=== PATIENT | female | born 1950 | race Caucasian/White ===

== ENCOUNTER → 2017-01-24 | Outpatient (REF) | payer MEDICARE, OTHER | LOC: M LAB REF 16:39 | PROVIDERS: ATTEND Obstetrics & Gynecology | DX: R39.89 Other symptoms and signs involving the genitourinary system (principal) ==

== ENCOUNTER → 2017-05-18 | Outpatient (CLI) | payer MEDICARE, OTHER ==
--- NOTE | 2017-05-18 12:31 | REPMRS ---
Patient History The patient states she had a clinical breast exam in January 2017.Patient is postmenopausal and has history of other cancer at age 63. Family history of unknown cancer in maternal grandfather at age 75 and breast cancer in maternal aunt at age 43. Benign excisional biopsy of the right breast, 1980. Benign mammogram-guided core biopsy of the right breast. Took hormonal contraceptives for 15 years. Took unspecified hormones for 10 years. Digital Mammo Screening Bilat: May 18, 2017 - Exam #: [id number] Bilateral CC and MLO view(s) were taken. Technologist: Nelly Lebron Technologist Prior study comparison: April 12, 2016, bilateral digital mammo screening bilat performed at [facility]. April 05, 2015, digital mammo diagnostic bilateral performed at [facility]. May 13, 2014, left breast digital mammo diagnostic unilateral performed at [facility]. FINDINGS: The breast tissue is heterogeneously dense. This may lower the sensitivity of mammography. There is a moderate amount of heterogeneously dense fibroglandular tissue which is fairly symmetric. There is no interval development of dominant mass, architectural distortion, or clustered microcalcification typical of malignancy. There has been no change in the appearance of the mammogram from the prior studies. ASSESSMENT: BI-RADS/ACR category 1 mammogram. Negative. Recommendation Routine screening mammogram of both breasts in 1 year (for women over age 40). This mammogram was interpreted with the aid of an FDA-approved computer-aided dectection system. Electronically Signed By: Dwain Johnston MD 05/18/17 [id number]
== END ==
LOC: M RAD 10:12
PROVIDERS: ATTEND Obstetrics & Gynecology
DX: Z12.31 Encounter for screening mammogram for malignant neoplasm of breast (principal)

== ENCOUNTER → 2018-05-22 | Outpatient (CLI) | payer MEDICARE, OTHER | LOC: M RAD 13:49 | DX: Z12.31 Encounter for screening mammogram for malignant neoplasm of breast (principal); Z79.3 Long term (current) use of hormonal contraceptives; Z79.890 Hormone replacement therapy; Z80.3 Family history of malignant neoplasm of breast; Z86.018 Personal history of other benign neoplasm | CPT/HCPCS: 77067 ==

== ENCOUNTER → 2018-08-02 | Outpatient (CLI) | payer MEDICARE, OTHER ==
[2018-08-02 17:26] LABS: FOLATE > 24.0 NG/ML; VITAMIN B12 LEVEL 898 PG/ML
== END ==
LOC: M LAB 15:57
DX: D51.9 Vitamin B12 deficiency anemia, unspecified (principal); E61.0 Copper deficiency; E51.9 Thiamine deficiency, unspecified
CPT/HCPCS: 82525

== ENCOUNTER → 2019-04-17 | Outpatient (CLI) | payer MEDICARE, OTHER ==
[~2019-04-17] MED LIST: ASPI81TA85 PO; AZIL1TAB PO; CALC600C3 PO; CARB25TA18 PO; CVS500CA5 PO; DOCU100C16 PO; LEVO50TA5 PO; MAGN400T2 PO; MULTCAP PO; PARO20TA4 PO; PROBCAP14 PO; RESV1TAB PO; SIMV20TA2 PO; VESI10TA2 PO; VITA-157 PO; VITA500C19 PO
--- NOTE | 2019-04-17 09:52 | REP ---
REASON: Splenomegaly. COMPARISON: None. The spleen measures 9.0 x 3.9 x 9.3 cm. These dimensions are within normal limits. On imaging the left upper quadrant images of the left kidney were obtained showing the kidney to measure 11 x 5.7 x 5.1 cm. Seen in the lower pole of the left kidney an echogenic shadowing focus was noted measuring 1.1 cm in dimension. There is no associated hydronephrosis. IMPRESSION: 1. No evidence of splenomegaly or other splenic abnormality. 2. Nonobstructing left renal calculus is suspected as described above. Electronically Signed by Otis Mckeon DO 04/17/2019 03:28 P
== END ==
LOC: M RAD 08:07
PROVIDERS: ATTEND Internal Medicine
DX: D72.829 Elevated white blood cell count, unspecified (principal)

== ENCOUNTER → 2019-05-02 | Outpatient (CLI) | payer MEDICARE, OTHER ==
[~2019-05-02] MED LIST changes: +GASTROGRAFIN SOLUTION 30ML (Q9963) As Ordered ONE; +ISOVUE-370 76% 100ML VIAL (Q9967) As Ordered ONE
--- NOTE | 2019-05-02 19:15 | REP ---
Clinical: Leukocytosis. Technique: Axial contrast enhanced images from the lung bases to the pubic symphysis using oral (per protocol) and 100 ml Isovue 370 intravenous contrast material with precontrast and delayed images of the abdomen as well as coronal and sagittal re-formations. Findings: Lung bases demonstrate chronic-appearing interstitial and fibroatelectatic changes (left greater than right). Visualized heart and pericardium normal. Liver, spleen, pancreas, gallbladder, bilateral adrenal glands are normal. The right kidney demonstrates a small hypodensities measuring up to 1.3 cm suggesting simple and complex cysts. The left kidney includes 15 mm nonobstructing calculus without hydronephrosis or perinephric stranding. The enteric system is without obstruction or acute inflammatory process. Pelvis demonstrates normal bladder and suspected myomatous changes to the uterus. No ascites. No free air. No adenopathy. Abdominal aorta without aneurysm or dissection. Musculoskeletal structures demonstrate age-related changes without focal abnormality. Impression: 1. Right renal hypodensities suggesting simple and complex cysts up to 1.3 cm and 15 mm nonobstructing left renal calculus. 2. Suspected myomatous changes to the uterus. Electronically Signed by Ervin Perales MD 05/02/2019 07:08 P
--- NOTE | 2019-05-02 19:18 | REP ---
Clinical: Leukocytosis. Technique: Axial contrast enhanced images from the thoracic inlet to the upper abdomen with coronal and sagittal re-formations using 100 ml Isovue 370 intravenous contrast material. Findings: Minimal chronic-appearing interstitial and basilar fibroatelectatic changes. No focal consolidation. No effusion. No pneumothorax. No significant nodule or mass lesion. Tracheobronchial tree is patent. No obvious adenopathy. Atherosclerotic changes to the thoracic aorta and coronary arteries noted without aortic aneurysm or cardiomegaly. No pericardial effusion. Musculoskeletal structures demonstrate age-related changes without focal abnormality. Impression: Chronic-appearing changes. No acute mediastinal or pleuroparenchymal process. Electronically Signed by Ervin Perales MD 05/02/2019 07:11 P
--- NOTE | 2019-05-06 09:17 | REP ---
Soft tissue neck CT with IV contrast: History: Increasing white blood cell count. Marginal zone lymphoma. CT contrast dose: 100 mL of intravenous Isovue [address] findings: Parotid and submandibular glands are normal and symmetric. Thyroid lobes are small and symmetric. There is no evidence of neck mass, adenopathy, or abnormal fluid collection. No airway lesion is seen. Tonsillar and peritonsillar soft tissues are unremarkable. No bony destructive lesion is seen. No intraorbital abnormality is observed. Paranasal sinuses are clear. Visualized intracranial structures are unremarkable. The lung apices show no abnormality. Impression: No neck mass or adenopathy seen. No abnormal fluid collection noted. Electronically Signed by Kody Johnston MD 05/06/2019 09:44 A
--- NOTE | 2019-05-06 10:32 | REP ---
Clinical: Leukocytosis. Technique: Axial pre and postcontrast images from the skull base to the vertex using 100 ml Isovue 370 intravenous contrast material. Comparison: MRI of the brain dated 03/26/2012. Findings: Age-related atrophy with subtle periventricular leukomalacia is appreciated. The ventricles are symmetric. Baum-white differentiation is maintained. No intracranial mass or mass effect is appreciated. No abnormal enhancing lesions are identified. The [place] appears relatively intact. No obvious aneurysm or arteriovenous malformation. No extra-axial fluid collection. The calvarium is intact. Paranasal sinuses and mastoid air cells are clear. Impression: Age-related atrophy. Otherwise normal pre and postcontrast CT of the brain. Electronically Signed by Ervin Perales MD 05/06/2019 10:24 A
== END ==
LOC: M RAD 14:59
PROVIDERS: ATTEND Internal Medicine
DX: D72.829 Elevated white blood cell count, unspecified (principal)
CPT/HCPCS: 70470; 70491; 71260; 74178; Q9963; Q9967

== ENCOUNTER → 2019-05-12 | Outpatient (REF) | payer MEDICARE, OTHER ==
[~2019-05-12] MED LIST changes: -GASTROGRAFIN SOLUTION 30ML (Q9963) As Ordered ONE; -ISOVUE-370 76% 100ML VIAL (Q9967) As Ordered ONE
== END ==
LOC: M SMT 18:11
PROVIDERS: ATTEND Urology
DX: N20.0 Calculus of kidney (principal)
CPT/HCPCS: 81002; 87086; G0463

== ENCOUNTER → 2019-05-23 | Outpatient (CLI) | payer MEDICARE, OTHER ==
--- NOTE | 2019-05-23 13:53 | REPMRS ---
Patient History The patient states she had a clinical breast exam in February 2019. Family history of unknown cancer at age 75 in maternal grandfather, breast cancer at age 43 in maternal aunt. Benign excisional biopsy of the right breast, 1980. Benign mammogram-guided core biopsy of the right breast. Took hormonal contraceptives for 15 years. Took unspecified hormones for 10 years. 3D TOMOSYNTHESIS WAS PERFORMED. The [facility] lifetime risk for breast cancer is 4.6%. Digital Mammo Screening Bilat: May 23, 2019 - Exam #: [id number] Bilateral CC and MLO view(s) were taken. Technologist: Rosa Avila, Technologist Prior study comparison: May 22, 2018, bilateral digital mammo screening bilat performed at [facility]. May 18, 2017, bilateral digital mammo screening bilat performed at [facility]. FINDINGS: The breast tissue is heterogeneously dense. This may lower the sensitivity of mammography. There has been no change in the appearance of the mammogram from the prior studies. There is a moderate amount of residual fibroglandular tissue which is fairly symmetric. There is no interval development of dominant mass, areas of architectural distortion, or clustered microcalcification typical of malignancy. Assessment: BI-RADS/ACR category 1 mammogram. Negative Mammogram. Recommendation Routine screening mammogram in 1 year (for women over age 40). This mammogram was interpreted with the aid of an FDA-approved computer-aided dectection system. Electronically Signed By: Sunday Baum MD 05/23/19 [id number]
== END ==
LOC: M RAD 10:49
PROVIDERS: ATTEND Obstetrics & Gynecology
DX: Z12.31 Encounter for screening mammogram for malignant neoplasm of breast (principal); Z80.3 Family history of malignant neoplasm of breast

== ENCOUNTER 2019-05-27 11:48 | Day surgery (SDC) | payer MEDICARE, OTHER ==
[~2019-05-27] VITALS: Ht 149.9 cm; Wt 62.3 kg
[~2019-05-27 11:48] MED LIST changes: +LIDOCAINE 2% INJ 100 MG/5 ML SDV (FOR ANES.) As Ordered ONE; +NS 1,000 ML IV ONE; +PROPOFOL 200 MG/20 ML VIAL As Ordered ONE
[2019-05-27] MEDS ORDERED: fentaNYL 100 MCG/2 ML INJECTION (J3010) As Ordered ONE (12:40)
--- NOTE | 2019-05-27 14:15 | ROOR ---
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 Providers: Travis Borjas MD Referring MD: IMAN COATS DO Requesting Provider: Medicines: Monitored Anesthesia Care Complications: No immediate complications. Procedure: Pre-Anesthesia Assessment: - Prior to the procedure, a History and Physical was performed, and patient medications and allergies were reviewed. The patient is competent. The risks and benefits of the procedure and the sedation options and risks were discussed with the patient. All questions were answered and informed consent was obtained. Patient identification and proposed procedure were verified by the physician, the nurse and the anesthesiologist in the procedure room. Mental Status Examination: alert and oriented. Airway Examination: normal oropharyngeal airway and neck mobility. Respiratory Examination: clear to auscultation. CV Examination: normal. Prophylactic Antibiotics: The patient does not require prophylactic antibiotics. Prior Anticoagulants: The patient has taken no previous anticoagulant or antiplatelet agents. ASA Grade Assessment: II - A patient with mild systemic disease. After reviewing the risks and benefits, the patient was deemed in satisfactory condition to undergo the procedure. The anesthesia plan was to use monitored anesthesia care (MAC). Immediately prior to administration of medications, the patient was re-assessed for adequacy to receive sedatives. The heart rate, respiratory rate, oxygen saturations, blood pressure, adequacy of pulmonary ventilation, and response to care were monitored throughout the procedure. The physical status of the patient was re-assessed after the procedure. The Endoscope was introduced through the mouth, and advanced to the second part of duodenum. The upper GI endoscopy was accomplished without difficulty. The patient tolerated the procedure well. Findings: The examined esophagus was normal. The Z-line was regular and was found 36 cm from the incisors. A few 3 to 6 mm sessile fundic gland polyps with no stigmata of recent bleeding were found in the gastric fundus and in the gastric body. Scattered moderate inflammation characterized by erosions, granularity and linear erosions was found in the gastric antrum. Four biopsies were obtained with cold forceps for histology and Helicobacter pylori testing in the gastric antrum, as well as four biopsies in the gastric body. No gross lesions were noted in the duodenal bulb and in the second portion of the duodenum. Biopsies were taken with a cold forceps for histology. Impression: - Normal esophagus. - Z-line regular, 36 cm from the incisors. - A few fundic gland polyps. - Gastritis. - No gross lesions in the duodenal bulb and in the second portion of the duodenum. Biopsied. - Biopsies performed in the gastric antrum and in the gastric body. Recommendation: - Patient has a contact number available for emergencies. The signs and symptoms of potential delayed complications were discussed with the patient. Return to normal activities tomorrow. Written discharge instructions were provided to the patient. - Resume previous diet. - Continue present medications. - Await pathology results. - Telephone GI clinic for pathology results in 2 weeks. - Return to primary care physician. Travis Borjas MD Travis Borjas MD 05/27/2019 2:15:30 PM Electronically signed by Travis Borjas MD Number of Addenda: 0 Note Initiated On: 05/27/2019 1:50 PM Estimated Blood Loss: Estimated blood loss was minimal.
[2019-05-27 14:33] VITALS: BP 149/69
== END 2019-05-27 14:33 | disposition home or self-care (01) ==
LOC: M OPP 11:48
PROVIDERS: ATTEND Internal Medicine Gastroenterology
DX: K31.7 Polyp of stomach and duodenum (principal); K29.70 Gastritis, unspecified, without bleeding; Z79.82 Long term (current) use of aspirin; Z79.899 Other long term (current) drug therapy
CPT/HCPCS: 43239; 88305; J3010

== ENCOUNTER → 2019-11-10 | Outpatient (CLI) | payer MEDICARE, OTHER ==
[~2019-11-10] MED LIST changes: +CARB1TAB97 PO; -LIDOCAINE 2% INJ 100 MG/5 ML SDV (FOR ANES.) As Ordered ONE; -NS 1,000 ML IV ONE; +OMEP-221 PO; -PROPOFOL 200 MG/20 ML VIAL As Ordered ONE; -SIMV20TA2 PO; +SIMV20TA22 PO
--- NOTE | 2019-11-10 11:27 | REP ---
Renal ultrasound for left renal calculus. : Comparison is the abdomen/pelvis CT dated 05/02/2019. The right kidney measures 11.7 x 5.8 x 3.6 cm. The left kidney measures 11.0 x 4.4 x 6.0 cm. The kidneys are normal size. There is a hyperechoic focal density in the upper pole right kidney by ultrasound today measuring 1.4 x 1.2 x 1.5 cm. The on the comparison CT this was a renal cortical cyst. On the comparison CT there was a second renal cortical cyst on the right at the mid pole measuring 7 mm. This is not visible on the ultrasound today. On the comparison CT there was a calculus in the left renal pelvis measuring up to 15 mm. On the ultrasound study today there is a left renal calculus in the renal pelvis measuring 1.8 by 1.3 cm. There is no hydronephrosis on the right on the left. No solid renal masses are identified. With color Doppler assessment there are bilateral ureteral jets into the bladder. Impression: Hyperdense right renal cyst as described. Nonobstructive calculus in the left renal pelvis as described. There is no hydronephrosis. There are bilateral ureteral jets. Electronically Signed by Sunday Hager MD 11/10/2019 11:19 A
== END ==
LOC: M RAD 09:43
PROVIDERS: ATTEND Urology
DX: N20.0 Calculus of kidney (principal)
CPT/HCPCS: 36415; 76775; 80053; 82784; 85027; G0463

== ENCOUNTER 2019-11-27 06:07 | Day surgery (SDC) | payer MEDICARE, OTHER ==
[~2019-11-27] VITALS: Ht 149.9 cm; Wt 62.2 kg
[~2019-11-27 06:07] MED LIST changes: +LR 1,000 ML IV ONE; +ceFAZolin SOD 2 GM in IV 1 EA IV ONE
[2019-11-27] MEDS ORDERED: propofoL 500 MG/50 ML VIAL As Ordered ONE (07:00)
[2019-11-27] MEDS ORDERED: LIDOCAINE 2% INJ 100 MG/5 ML SDV (FOR ANES.) As Ordered ONE (07:00)
[2019-11-27 09:00] VITALS: BP 125/63
--- NOTE | 2019-11-27 09:28 | REP ---
KUB ABDOMEN AND PELVIS: KUB film of the abdomen and pelvis is performed. Calcification overlying the lower left kidney measures approximately 1.3 cm in diameter. There are multiple phleboliths in the pelvis. Bowel gas pattern is normal. Electronically Signed by Sunday Baum MD 11/27/2019 04:48 P
--- NOTE | 2019-11-27 09:58 | RO ---
DATE OF PROCEDURE: 11/27/2019 PREPROCEDURE DIAGNOSIS: Left kidney stone. POSTPROCEDURE DIAGNOSIS: Left kidney stone. PROCEDURE: Left extracorporeal shockwave lithotripsy. SURGEON: Dr. Sergo Hopkins RESEARCH ENVIRONMENTAL ENGINEER: None. ANESTHESIA: Monitored anesthesia care (MAC). OPERATIVE INDICATIONS: This is a 69-year-old female who was found to have a 15 mm left kidney stone. She was brought to the operating room today for the above listed procedure. DESCRIPTION OF PROCEDURE: The patient was brought to the operating room and MAC anesthesia was administered. Prophylactic antibiotics were infused. She was placed in supine position in preparation for a left sided extracorporeal shockwave lithotripsy. Fluoroscopy and ultrasonography were utilized to monitor stone position and fragmentation throughout the procedure. Shockwaves were then delivered to the left sided kidney stone ungated. There were no arrhythmias. The stone did appear to fragment some. After 2500 shocks, the procedure was concluded. The patient was then awakened from anesthesia and transported to the recovery room in stable condition. Estimated blood loss 0 mL. Complications: None. Specimens: None. Plan: The patient will followup in the clinic in 4 weeks with imaging prior to assess for residual stone burden. If at that time it shows that she still has a large amount of stone in the left kidney, she will either be offered repeat ESWL or ureteroscopy. NKECHI
== END 2019-11-27 09:10 | disposition home or self-care (01) ==
LOC: M SDC 06:07
PROVIDERS: ATTEND Urology
DX: N20.0 Calculus of kidney (principal); N32.81 Overactive bladder; E03.9 Hypothyroidism, unspecified; M81.0 Age-related osteoporosis without current pathological fracture; M19.90 Unspecified osteoarthritis, unspecified site; E78.5 Hyperlipidemia, unspecified; F32.9 Major depressive disorder, single episode, unspecified; F41.9 Anxiety disorder, unspecified; G20 Parkinson's disease; Z79.899 Other long term (current) drug therapy; Z79.82 Long term (current) use of aspirin
CPT/HCPCS: 50590; 74018; J0690

== ENCOUNTER → 2019-12-17 | Outpatient (REF) | payer MEDICARE, OTHER ==
[~2019-12-17] MED LIST changes: -LR 1,000 ML IV ONE; -ceFAZolin SOD 2 GM in IV 1 EA IV ONE
== END ==
LOC: M SMT 16:58
PROVIDERS: ATTEND Nurse Practitioner Women's Health
DX: N20.0 Calculus of kidney (principal)

== ENCOUNTER → 2019-12-17 | Outpatient (CLI) | payer MEDICARE, OTHER ==
--- NOTE | 2019-12-18 20:57 | REPPI ---
HISTORY: Left renal calculus. COMPARISON: 11/27/2019. There is a large amount of intestinal content obscuring the nephric silhouettes. The calcification seen previously in the left mid abdomen is not definitely present today, however, there is an increased density seen in the left upper quadrant, but it is for the most part obscured by or imbedded within intestinal content. This limited KUB cannot state the fact with certainty. There are bilateral pelvic calcifications, status quo. The osseous structures are unchanged. IMPRESSION: Findings and marked limitations as described above. Consider stone protocol CT. Electronically Signed by Otis Mckeon DO 12/19/2019 09:05 A
== END ==
LOC: M PLAIMG 14:22
PROVIDERS: ATTEND Urology
DX: N20.0 Calculus of kidney (principal)

== ENCOUNTER → 2020-05-25 | Outpatient (CLI) | payer MEDICARE, OTHER ==
[~2020-05-25] MED LIST changes: -ASPI81TA85 PO; +ASPI81TA86 PO
--- NOTE | 2020-05-25 15:01 | REPMRS ---
Patient History The patient states she had a clinical breast exam in February 2020. Family history of unknown cancer at age 75 in maternal grandfather, breast cancer at age 43 in maternal aunt. Benign excisional biopsy of the right breast, 1980. Benign mammogram-guided core biopsy of the right breast. Took hormonal contraceptives for 15 years. Took unspecified hormones for 10 years. 3D TOMOSYNTHESIS WAS PERFORMED. The [facility] lifetime risk for breast cancer is 4.3%. VOLPARA DENSITY B. Digital Woman Screen Mammo: May 25, 2020 - Exam #: [id number] Bilateral CC and MLO view(s) were taken. Technologist: Rosa Avila, Technologist Prior study comparison: May 23, 2019, bilateral digital mammo screening bilat, performed at [facility]. May 22, 2018, bilateral digital mammo screening bilat, performed at [facility]. FINDINGS: There are scattered fibroglandular densities. There is a fairly symmetric fibroglandular pattern in both breasts. There has been no interval development of masses, areas of architectural distortion or clusters of microcalcifications typical of malignancy. Large coarse benign appearing calcifications are present. Assessment: BI-RADS/ACR category 2 mammogram. Benign Findings. Recommendation Routine screening mammogram of both breasts in 1 year (for women over age 40). This mammogram was interpreted with the aid of an FDA-approved computer-aided dectection system. Electronically Signed By: Sunday Baum MD 05/25/20 [id number]
== END ==
LOC: M WHC 13:50
PROVIDERS: ATTEND Obstetrics & Gynecology
DX: Z12.31 Encounter for screening mammogram for malignant neoplasm of breast (principal); Z80.3 Family history of malignant neoplasm of breast

== ENCOUNTER → 2020-06-17 | Outpatient (CLI) | payer MEDICARE, OTHER ==
--- NOTE | 2020-06-17 14:16 | REP ---
INDICATION: LEFT RENAL STONE COMPARISON: 11/27/2019 TECHNIQUE: Single supine view of the abdomen and pelvis. FINDINGS: Evaluation of the urinary tract system is significantly limited due to technique and overlying bowel gas pattern which includes significant fecal stasis. The previously noted 11 mm left renal calculus is not definitively visualized on current examination. Stable calcifications in the pelvis consistent with phleboliths. The skeletal structures demonstrate stable degenerative changes. IMPRESSION: Limited evaluation of the urinary tract system. Moderate to significant fecal stasis. <Electronically signed by Ervin Perales > 06/17/20 0745
== END ==
LOC: M LAB 13:29
PROVIDERS: ATTEND Nurse Practitioner Family
DX: N20.0 Calculus of kidney (principal)

== ENCOUNTER → 2020-06-28 | Outpatient (REF) | payer MEDICARE, OTHER | LOC: M LAB REF 17:08 | PROVIDERS: ATTEND Physician Assistant | DX: D23.5 Other benign neoplasm of skin of trunk (principal) | CPT/HCPCS: 11102; 88305; G0463 ==

== ENCOUNTER → 2020-09-09 | Outpatient (CLI) | payer MEDICARE, OTHER ==
[~2020-09-09] MED LIST changes: +ASPI81CH33 PO; +MULT-90 PO
[2020-09-09 15:13] LABS: BASO % 0.2 % (0.0-1.0); EOS # 0.1 10^3/uL (0.0-0.5); EOS % 0.5 % (0.0-3.0); HEMATOCRIT 41.9 % (36.0-47.0); HEMOGLOBIN 12.9 g/dl (12.0-15.5); LYMPH % 69.9 % (24.0-44.0); MEAN CORPUSCULAR HEMOGLOBIN 29.3 pg (27.0-33.0); MEAN CORPUSCULAR HGB CONC 30.8 g/dl (32.0-36.5); MEAN CORPUSCULAR VOLUME 95.2 fl (80.0-96.0); MONO # 0.7 10^3/uL (0.0-0.8); MONO % 3.7 % (0.0-5.0); NEUTROPHILS # 4.7 10^3/uL (1.5-8.5); NEUTROPHILS % 25.4 % (36.0-66.0); PLATELET COUNT, AUTOMATED 236 10^3/uL (150-450)
[2020-09-09 15:14] LABS: WHITE BLOOD COUNT 18.6 10^3/uL (4.0-10.0)
[2020-09-09 15:46] LABS: ALBUMIN 4.1 GM/DL (3.2-5.2); ALT/SGPT 11 U/L (12-78); BILIRUBIN,TOTAL 0.4 MG/DL (0.2-1.0); BLOOD UREA NITROGEN 26 MG/DL (7-18); CALCIUM LEVEL 9.6 MG/DL (8.8-10.2); CARBON DIOXIDE LEVEL 33 MEQ/L (21-32); CHLORIDE LEVEL 105 MEQ/L (98-107); CREATININE FOR GFR 0.59 MG/DL (0.55-1.30); GLOMERULAR FILTRATION RATE > 60.0 (>39); GLUCOSE, FASTING 101 MG/DL (70-100); LDH LACTATE DEHYDROGENASE 147 U/L (84-246); POTASSIUM SERUM 4.3 MEQ/L (3.5-5.1); SODIUM LEVEL 141 MEQ/L (136-145)
== END ==
LOC: M LAB 14:34
PROVIDERS: ATTEND Internal Medicine Hematology & Oncology
DX: D72.820 Lymphocytosis (symptomatic) (principal)

== ENCOUNTER → 2020-11-17 | Outpatient (REF) | payer MEDICARE, OTHER ==
[~2020-11-17] MED LIST changes: +LEVO100C PO; -VITA-157 PO; +VITAE40CA PO
== END ==
LOC: M LAB REF 17:17
PROVIDERS: ATTEND Physician Assistant
DX: D23.5 Other benign neoplasm of skin of trunk (principal)

== ENCOUNTER → 2021-01-17 | Outpatient (REF) | payer MEDICARE, OTHER | LOC: M LAB REF 16:10 | PROVIDERS: ATTEND Physician Assistant | DX: L82.1 Other seborrheic keratosis (principal) ==

== ENCOUNTER → 2021-05-31 | Outpatient (CLI) | payer MEDICARE, OTHER ==
--- NOTE | 2021-05-31 16:11 | REP ---
INDICATION: ENCTR SCREEN MAMMO FOR MALIGNANT NEOPLASM OF BREAST. COMPARISON: Multiple TECHNIQUE: Digital screening mammography was carried out bilaterally in the CC and MLO projections using both 2D and 3D modalities and compared to the prior exams. By history, the patient has no complaints of a palpable breast abnormality or other significant breast complaints. FINDINGS: The breasts are unchanged in size and shape. Once again, dense heterogenous nodular fibroglandular elements are seen bilaterally to such a degree that the sensitivity of the mammogram in detecting cancer is decreased. Groups of stable appearing calcifications are again seen bilaterally. No one group appears more suspicious than any other. In the right breast upper inner quadrant there is a potential darcy density. In the left breast upper aspect near 12 o'clock there is a potential darcy asymmetric density with internal architectural distortion. The Volpara volumetric breast density pattern is C. IMPRESSION: BIRADS/ACR category 0 mammogram. Potential abnormalities seen in each breast as described above and for which diagnostic digital DBT spot compression views are recommended in the CC and MLO views bilaterally along with diagnostic ultrasonography if necessary. This patient's Tyrer-Cuzick lifetime breast cancer risk assessment score is 4.1%. This mammogram was interpreted with the aid of an FDA-approved computer-aided detection system. The patient states she had a clinical breast exam in over a year. The patient letter being requested is M0. RECOMMENDATION: As above <Electronically signed by Otis Mckeon > 05/31/21 [id number]
== END ==
LOC: M WHC 14:46
PROVIDERS: ATTEND Obstetrics & Gynecology
DX: R92.2 Inconclusive mammogram (principal)

== ENCOUNTER → 2021-06-21 | Outpatient (CLI) | payer MEDICARE, OTHER ==
--- NOTE | 2021-06-21 16:52 | REP ---
INDICATION: PERSONAL HISTORY OF URINARY CALCULI. COMPARISON: 06/17/2020 FINDINGS: There is a moderate amount of stool seen throughout the colon similar to that seen on the prior exam. The colonic content obscures the nephric silhouettes as on the prior exam. There are bilateral pelvic calcifications likely phleboliths status quo. No definite new abnormal calcifications have developed. There is no significant change in the osseous structures. IMPRESSION: No significant change with findings and limitations as described above. <Electronically signed by Otis Mckeon > 06/21/21 [id number]
== END ==
LOC: M PLAIMG 15:26
PROVIDERS: ATTEND Nurse Practitioner Women's Health
DX: Z87.442 Personal history of urinary calculi (principal)

== ENCOUNTER → 2021-06-21 | Outpatient (CLI) | payer MEDICARE, OTHER ==
--- NOTE | 2021-06-21 15:48 | REP ---
INDICATION: BILATERAL ADD VIEWS. COMPARISON: 05/31/2021 as well as multiple other prior exams. TECHNIQUE: Spot-compression tomographic sequences are performed bilaterally and correlated with multiple prior exams. FINDINGS: In the upper inner right breast a smoothly marginated nodule is confirmed measuring 7 mm in diameter. In the upper inner left breast is a 1.5 cm spiculated mass is confirmed measuring about 1.5 cm in diameter. Real-time sonographic evaluation of the upper inner right breast demonstrates a simple cyst at 1 o'clock 6 mm in diameter corresponding to the mammographic abnormality. With elastography KPA is 7. In the upper inner left breast, multiple 2 mm cysts are seen, with mildly dilated ducts. At 10 o'clock an irregular solid nodule demonstrates internal vascularity with Doppler evaluation, measuring 13 x 7 x 8 mm. This is approximately 1-2 cm from the nipple. KP a value 54.1. At 11 o'clock a heterogeneously hypoechoic irregular nodule measures 10 x 8 x 8 mm, KP a value 35, 6 cm from the nipple. This probably corresponds to the abnormality on the mammogram. IMPRESSION: BIRADS/ACR category 4, suspicious. Spiculated nodule in the upper inner left breast appears to correspond to an irregular nodule seen at 11 o'clock by ultrasound. Another irregular solid nodule is seen at 10 o'clock approximately 1-2 cm from the nipple, seen only by ultrasound. Recommend ultrasound-guided biopsy of both lesions, with postprocedure mammogram. The smoothly marginated nodule in the upper inner right breast corresponds to a benign cyst. This mammogram was interpreted with the aid of an FDA-approved computer-aided detection system. The patient letter being requested is M4. RECOMMENDATION: Recommend ultrasound-guided biopsy of 2 lesions in the left breast as discussed above. <Electronically signed by Sunday Baum > 06/21/21 [id number]
== END ==
LOC: M WHC 13:08
PROVIDERS: ATTEND Obstetrics & Gynecology
DX: N63.12 Unspecified lump in the right breast, upper inner quadrant (principal); N63.22 Unspecified lump in the left breast, upper inner quadrant; Z87.442 Personal history of urinary calculi
CPT/HCPCS: 74018; 76642; 77066; G0279

== ENCOUNTER → 2021-10-04 | Outpatient (CLI) | payer MEDICARE, OTHER ==
[~2021-10-04] MED LIST changes: +ANAS1TAB2 PO; +MELA2.5C4 PO; -OMEP-221 PO; +OMEP40CA5 PO
== END ==
LOC: M WHC 13:30
PROVIDERS: ATTEND Specialist
DX: Z13.828 Encounter for screening for other musculoskeletal disorder (principal); M85.89 Other specified disorders of bone density and structure, multiple sites; Z85.3 Personal history of malignant neoplasm of breast

== ENCOUNTER 2021-10-30 18:40 | Emergency (ER) | payer MEDICARE, OTHER ==
[~2021-10-30] VITALS: Ht 149.9 cm; Wt 66.2 kg
[2021-10-30 18:40] VITALS: BP 157/67
[2021-10-30] MEDS ORDERED: PENICILLIN V POTASSIUM 500 MG TAB PO ONE (19:35)
[2021-10-30] MEDS ORDERED: ACETAMINOPHEN TAB 650MG DOSE (2X325MG) PO ONE (19:35)
[2021-10-30] MEDS ORDERED: PENI500T PO (19:40)
== END 2021-10-30 19:52 | disposition home or self-care (01) ==
LOC: M ED 18:40
DX: K08.89 Other specified disorders of teeth and supporting structures (principal); G20 Parkinson's disease; E78.5 Hyperlipidemia, unspecified; E03.9 Hypothyroidism, unspecified; Z85.3 Personal history of malignant neoplasm of breast; Z85.72 Personal history of non-Hodgkin lymphomas; Z79.899 Other long term (current) drug therapy; Z79.82 Long term (current) use of aspirin

== ENCOUNTER → 2022-04-17 | Outpatient (CLI) | payer MEDICARE, OTHER ==
[~2022-04-17] MED LIST changes: +FRUICAP PO; +PENI500T PO
== END ==
LOC: M RAD 15:44
PROVIDERS: ATTEND Specialist
DX: D72.829 Elevated white blood cell count, unspecified (principal); M19.011 Primary osteoarthritis, right shoulder; M48.02 Spinal stenosis, cervical region

== ENCOUNTER → 2022-05-31 | Outpatient (CLI) | payer MEDICARE, OTHER | LOC: M WHC 12:56 | PROVIDERS: ATTEND Surgery | DX: C50.912 Malignant neoplasm of unspecified site of left female breast (principal) ==

== ENCOUNTER → 2022-06-21 | Outpatient (REF) | payer MEDICARE, OTHER | LOC: M SFHCWAGY 15:21 | PROVIDERS: ATTEND Surgery | DX: L98.7 Excessive and redundant skin and subcutaneous tissue (principal) ==

== ENCOUNTER 2022-08-06 18:59 | Emergency (ER) | payer MEDICARE, OTHER ==
[~2022-08-06] VITALS: Ht 147.3 cm; Wt 65.9 kg
[2022-08-06 20:41] VITALS: BP 142/66
== END 2022-08-06 20:42 | disposition home or self-care (01) ==
LOC: EDBD 18:59 → M ED 18:59
DX: S09.90XA Unspecified injury of head, initial encounter (principal); W01.10XA Fall on same level from slipping, tripping and stumbling with subsequent striking against unspecified object, initial encounter; Y92.099 Unspecified place in other non-institutional residence as the place of occurrence of the external cause; G20 Parkinson's disease; E78.5 Hyperlipidemia, unspecified; Z85.3 Personal history of malignant neoplasm of breast; Z79.82 Long term (current) use of aspirin; Z79.899 Other long term (current) drug therapy; Z88.8 Allergy status to other drugs, medicaments and biological substances

== ENCOUNTER 2022-11-17 20:27 | Emergency (ER) | payer MEDICARE, OTHER ==
[~2022-11-17] VITALS: Ht 149.9 cm; Wt 68.2 kg
[~2022-11-17 20:27] MED LIST changes: +CEPH250T PO
[2022-11-18 00:13] VITALS: BP 135/62
== END 2022-11-18 04:14 | disposition home or self-care (01) ==
LOC: M ED 20:27
DX: S00.03XA Contusion of scalp, initial encounter (principal); W01.198A Fall on same level from slipping, tripping and stumbling with subsequent striking against other object, initial encounter; Y92.009 Unspecified place in unspecified non-institutional (private) residence as the place of occurrence of the external cause; Y93.01 Activity, walking, marching and hiking; Y99.8 Other external cause status; Z88.8 Allergy status to other drugs, medicaments and biological substances; Z79.899 Other long term (current) drug therapy

== ENCOUNTER → 2023-02-19 | Outpatient (REF) | payer MEDICARE, OTHER | LOC: M SFHCWAGY 10:13 | PROVIDERS: ATTEND Nurse Practitioner Family | DX: Z12.4 Encounter for screening for malignant neoplasm of cervix (principal); R87.810 Cervical high risk human papillomavirus (HPV) DNA test positive; N95.2 Postmenopausal atrophic vaginitis | CPT/HCPCS: 87624; G0123 ==

== ENCOUNTER 2023-03-27 10:35 | Emergency (ER) | payer MEDICARE, OTHER ==
[~2023-03-27] VITALS: Ht 149.9 cm; Wt 66.9 kg
[2023-03-27 11:25] VITALS: BP 119/59; TEMP 97.1; O2SAT 96
== END 2023-03-27 11:44 | disposition home or self-care (01) ==
LOC: M ED 10:35 → EDBD 10:35 → M ED 11:44
DX: S09.90XA Unspecified injury of head, initial encounter (principal); W19.XXXA Unspecified fall, initial encounter; Y92.009 Unspecified place in unspecified non-institutional (private) residence as the place of occurrence of the external cause; Y93.01 Activity, walking, marching and hiking; Y99.8 Other external cause status; G20 Parkinson's disease; Z88.8 Allergy status to other drugs, medicaments and biological substances; Z79.899 Other long term (current) drug therapy

== ENCOUNTER → 2023-03-29 | Outpatient (CLI) | payer MEDICARE, OTHER | LOC: M WHC 08:58 | PROVIDERS: ATTEND Nurse Practitioner Women's Health | DX: C50.912 Malignant neoplasm of unspecified site of left female breast (principal); N60.01 Solitary cyst of right breast; R10.2 Pelvic and perineal pain ==

== ENCOUNTER → 2023-03-29 | Outpatient (CLI) | payer MEDICARE, OTHER | LOC: M WHC 09:01 | PROVIDERS: ATTEND Nurse Practitioner Family | DX: R10.2 Pelvic and perineal pain (principal) ==

== ENCOUNTER → 2023-06-26 | Outpatient (CLI) | payer MEDICARE, OTHER ==
[~2023-06-26] MED LIST changes: +LEVO75TA4; +PARO5TAB PO
== END ==
LOC: M WUC 14:35
PROVIDERS: ATTEND Physician Assistant
DX: M25.512 Pain in left shoulder (principal); M25.532 Pain in left wrist

== ENCOUNTER → 2023-07-30 | Outpatient (REF) | payer MEDICARE, OTHER | LOC: M SFHCDERM 14:17 | PROVIDERS: ATTEND Physician Assistant | DX: L82.0 Inflamed seborrheic keratosis (principal) ==

== ENCOUNTER 2024-01-14 20:29 | Emergency (ER) | payer MEDICARE, OTHER ==
[~2024-01-14] VITALS: Ht 149.9 cm; Wt 64.5 kg
[~2024-01-14 20:29] MED LIST changes: +CRAN500C11 PO; -CVS500CA5 PO
[2024-01-14 20:40] VITALS: BP 158/69; TEMP 97.9; O2SAT 93
[2024-01-14] MEDS: LIDOCAINE 1% MDV 20ML VIAL SC ONE (22:35)
== END 2024-01-15 00:29 | disposition home or self-care (01) ==
LOC: M ED 20:29 → EDBD 20:29 → M ED 01-15 00:29
DX: S01.01XA Laceration without foreign body of scalp, initial encounter (principal); G20.A1 Parkinson's disease without dyskinesia, without mention of fluctuations; W01.118A Fall on same level from slipping, tripping and stumbling with subsequent striking against other sharp object, initial encounter; E03.9 Hypothyroidism, unspecified; C50.919 Malignant neoplasm of unspecified site of unspecified female breast; Y92.009 Unspecified place in unspecified non-institutional (private) residence as the place of occurrence of the external cause; Y93.89 Activity, other specified; Y99.9 Unspecified external cause status; Z88.8 Allergy status to other drugs, medicaments and biological substances; Z79.899 Other long term (current) drug therapy

== ENCOUNTER → 2024-02-22 | Outpatient (REF) | payer MEDICARE, OTHER ==
[2024-02-26 12:57] LABS: HPV APTIMA Not Detected (Not Detected)
== END ==
LOC: M SFHCWAGY 15:10
PROVIDERS: ATTEND Nurse Practitioner Family
DX: Z12.4 Encounter for screening for malignant neoplasm of cervix (principal); N95.2 Postmenopausal atrophic vaginitis

== ENCOUNTER → 2024-03-31 | Outpatient (CLI) | payer MEDICARE, OTHER | LOC: M WHC 14:19 | PROVIDERS: ATTEND Nurse Practitioner Women's Health | DX: Z90.12 Acquired absence of left breast and nipple (principal); Z85.3 Personal history of malignant neoplasm of breast ==

== ENCOUNTER → 2024-04-28 | Outpatient (CLI) | payer MEDICARE, OTHER | LOC: M WHC 13:15 | PROVIDERS: ATTEND Internal Medicine Medical Oncology | DX: M81.0 Age-related osteoporosis without current pathological fracture (principal) ==

== ENCOUNTER 2024-08-18 12:59 | Emergency (ER) | payer MEDICARE, OTHER ==
[~2024-08-18] VITALS: Ht 149.9 cm; Wt 71.1 kg
[~2024-08-18 12:59] MED LIST changes: -CRAN500C11 PO; +CVS500CA5 PO; -VITA500C19 PO; +VITA500C22 PO
[2024-08-18 14:45] VITALS: BP 130/56; TEMP 97.3; O2SAT 93
== END 2024-08-18 15:05 | disposition home or self-care (01) ==
LOC: M ED 12:59 → EDBD 12:59 → M ED 15:05
DX: Z04.3 Encounter for examination and observation following other accident (principal); G20.C Parkinsonism, unspecified; Z85.3 Personal history of malignant neoplasm of breast; E78.5 Hyperlipidemia, unspecified; Z87.442 Personal history of urinary calculi; Z79.899 Other long term (current) drug therapy; Z88.8 Allergy status to other drugs, medicaments and biological substances

== ENCOUNTER 2024-08-19 13:12 | Emergency (ER) | payer MEDICARE, OTHER ==
[~2024-08-19] VITALS: Ht 149.9 cm; Wt 64.5 kg
[2024-08-19] MEDS: LIDOCAINE W/EPINEPHRINE 1% 20ML VIAL SC ONE (19:45)
[2024-08-19 20:10] VITALS: BP 143/77; TEMP 97.7; O2SAT 95
== END 2024-08-19 20:11 | disposition home or self-care (01) ==
LOC: M ED 13:12
DX: S01.01XA Laceration without foreign body of scalp, initial encounter (principal); W01.10XA Fall on same level from slipping, tripping and stumbling with subsequent striking against unspecified object, initial encounter; Y92.89 Other specified places as the place of occurrence of the external cause; Y93.9 Activity, unspecified; Y99.9 Unspecified external cause status; G20.C Parkinsonism, unspecified; Z85.3 Personal history of malignant neoplasm of breast; Z79.899 Other long term (current) drug therapy; Z88.8 Allergy status to other drugs, medicaments and biological substances

== ENCOUNTER → 2025-04-01 | Outpatient (CLI) | payer MEDICARE, OTHER ==
[~2025-04-01] MED LIST changes: -LEVO100C PO; +LEVO100C2 PO
== END ==
LOC: M WHC 10:51
DX: Z12.31 Encounter for screening mammogram for malignant neoplasm of breast (principal); R92.333 Mammographic heterogeneous density, bilateral breasts
CPT/HCPCS: 77067; G0279

== ENCOUNTER 2025-04-14 13:46 | Emergency (ER) | payer MEDICARE, OTHER ==
[~2025-04-14] VITALS: Ht 149.9 cm; Wt 65.2 kg
[2025-04-14 13:51] VITALS: TEMP 96.9
[2025-04-14 16:30] LABS: KETONE, URINE AUTO RFX TRACE mg/dL (NEGATIVE); LEUKOCYTE ESTERASE UR AUTO RFX NEGATIVE (NEGATIVE); NITRITE, URINE AUTO RFX NEGATIVE (NEGATIVE); RBC, URINE AUTO RFX 3 /HPF (0-3); SQUAM EPITHELIAL CELL UR AURFX 0 /HPF (0-6); WBC, URINE AUTO RFX 2 /HPF (0-3)
[2025-04-14 18:26] LABS: PLATELET COUNT, AUTOMATED 190 10^3/uL (150-450)
[2025-04-14 18:53] LABS: ATYPICAL LYMPH 5 % (0-5); LYMPHOCYTES 78 % (16-44); MONOCYTES 3 % (0-5); NEUTROPHILS 14 % (28-66)
[2025-04-14 18:54] LABS: PLATELET ESTIMATE NORMAL (NORMAL)
[2025-04-14 19:23] VITALS: BP 174/77; O2SAT 95
[2025-04-15] MEDS ORDERED: ANAS1TAB2 PO (10:06)
== END 2025-04-14 19:15 | disposition home or self-care (01) ==
LOC: M ED 13:46
DX: R33.9 Retention of urine, unspecified (principal); S39.92XA Unspecified injury of lower back, initial encounter; W19.XXXA Unspecified fall, initial encounter; Y92.9 Unspecified place or not applicable; Y93.9 Activity, unspecified; Y99.9 Unspecified external cause status; G20.C Parkinsonism, unspecified; K21.9 Gastro-esophageal reflux disease without esophagitis; M51.360 Other intervertebral disc degeneration, lumbar region with discogenic back pain only; Z79.899 Other long term (current) drug therapy; Z88.8 Allergy status to other drugs, medicaments and biological substances

== ENCOUNTER 2025-06-04 21:54 | Emergency (ER) | payer MEDICARE, OTHER ==
[~2025-06-04 21:54] MED LIST changes: +PARO20TA3
[2025-06-05] MEDS ORDERED: OXYC1TAB23 PO (00:37)
[2025-06-05 00:49] VITALS: BP 148/75; TEMP 97.5; O2SAT 97
== END 2025-06-05 00:50 | disposition home or self-care (01) ==
LOC: M ED 21:54
DX: S52.501A Unspecified fracture of the lower end of right radius, initial encounter for closed fracture (principal); W01.198A Fall on same level from slipping, tripping and stumbling with subsequent striking against other object, initial encounter; Y92.9 Unspecified place or not applicable; Y93.9 Activity, unspecified; Y99.9 Unspecified external cause status; G20.C Parkinsonism, unspecified; K21.9 Gastro-esophageal reflux disease without esophagitis; F41.9 Anxiety disorder, unspecified; Z79.899 Other long term (current) drug therapy; Z88.8 Allergy status to other drugs, medicaments and biological substances

== ENCOUNTER 2025-06-10 10:51 | Inpatient (IN) | payer MEDICARE, OTHER ==
[~2025-06-10] VITALS: Ht 149.9 cm; Wt 73.6 kg
[~2025-06-10 10:51] MED LIST changes: -LEVO75TA4; +LEVO75TA4 PO; +OXYC1TAB23 PO; -PARO20TA3; +PARO20TA3 PO
[2025-06-10 11:26] LABS: VENOUS BASE EXCESS -0.3 (-2.0-2.0); VENOUS HCO3 24.4 MMOL/L (23.0-27.0); VENOUS O2 SATURATION 92.2 % (60.0-80.0); VENOUS PARTIAL PRESSURE CO2 40.3 mmHg (38.0-50.0); VENOUS PARTIAL PRESSURE O2 64.4 mmHg (30.0-50.0); VENOUS PH 7.400 UNITS (7.330-7.430); VENOUS STANDARD HCO3 24.1 MMOL/L; VENOUS TOTAL CO2 25.6 MMOL/L (24.0-28.0)
[2025-06-10 11:37] LABS: PLATELET COUNT, AUTOMATED 155 10^3/uL (150-450)
[2025-06-10 11:51] LABS: OSMOLALITY SERUM 305 MOSM/KG (280-301)
[2025-06-10 11:53] LABS: ALT/SGPT 11 U/L (7.0-40); AST/SGOT 35 U/L (<34); CALCIUM LEVEL 9.7 MG/DL (8.3-10.6); CARBON DIOXIDE LEVEL 28 MMOL/L (20-31); CHLORIDE LEVEL 108 MMOL/L (98-107); CREATININE FOR GFR 0.48 MG/DL (0.55-1.30); GLOMERULAR FILTRATION RATE > 90.0 (>39); POTASSIUM SERUM 4.4 MMOL/L (3.5-5.1); SODIUM LEVEL 146 MMOL/L (136-145)
[2025-06-10 12:12] LABS: ATYPICAL LYMPH 52 % (0-5); LYMPHOCYTES 26 % (16-44); MONOCYTES 3 % (0-5); NEUTROPHILS 19 % (28-66); PLATELET ESTIMATE NORMAL (NORMAL)
[2025-06-10] MEDS ORDERED: KP F1200 PO (12:17)
[2025-06-10] MEDS ORDERED: CARB25TA9 PO (12:17)
[2025-06-10] MEDS ORDERED: ANAS1TAB2 PO (12:17)
[2025-06-10] MEDS ORDERED: METR0.7526 TOP (12:17)
[2025-06-10] MEDS ORDERED: VITA400C53 PO (12:17)
[2025-06-10] MEDS ORDERED: HOME MED LIST COMPLETE! XX SCH (12:20)
[2025-06-10] MEDS: CARBIDOPA/LEVODOPA 25 MG/100 MG PO SCH (15:40)
[2025-06-10] MEDS: PARoxetine 20MG TABLET PO SCH (20:16)
[2025-06-10] MEDS: MAGNESIUM OXIDE 400 MG TAB PO SCH (20:16)
[2025-06-10] MEDS: ENOXAPARIN 40 MG/0.4 ML SYRINGE (J1650 PER 10MG) SC SCH (20:16)
[2025-06-10] MEDS: SIMVASTATIN 20 MG TAB PO SCH (20:17)
[2025-06-10] MEDS: CARBIDOPA/LEVODOPA **ER** 25 MG/100 MG PO SCH (20:36)
[2025-06-10 21:07] LABS: KETONE, URINE AUTO RFX TRACE mg/dL (NEGATIVE); NITRITE, URINE AUTO RFX NEGATIVE (NEGATIVE); RBC, URINE AUTO RFX 3 /HPF (0-3); SQUAM EPITHELIAL CELL UR AURFX 0 /HPF (0-6); WBC, URINE AUTO RFX 2 /HPF (0-3)
[2025-06-10 21:20] LABS: LEUKOCYTE ESTERASE UR AUTO RFX TRACE (NEGATIVE)
[2025-06-10 22:55] VITALS: BP 123/63; TEMP 98.2; O2SAT 92
[2025-06-11 04:00] VITALS: BP 155/74; TEMP 98.1; O2SAT 92
[2025-06-11] MEDS: LEVOTHYROXINE 75 MCG TABLET (0.075 MG) PO SCH (06:02)
[2025-06-11 06:47] LABS: PLATELET COUNT, AUTOMATED 157 10^3/uL (150-450)
[2025-06-11 07:11] LABS: CALCIUM LEVEL 9.5 MG/DL (8.3-10.6); CARBON DIOXIDE LEVEL 29 MMOL/L (20-31); CHLORIDE LEVEL 106 MMOL/L (98-107); CREATININE FOR GFR 0.54 MG/DL (0.55-1.30); GLOMERULAR FILTRATION RATE > 90.0 (>39); POTASSIUM SERUM 3.9 MMOL/L (3.5-5.1); SODIUM LEVEL 143 MMOL/L (136-145)
[2025-06-11] MEDS: SOLIFENACIN 5 MG TAB PO SCH (08:41)
[2025-06-11] MEDS: DOCUSATE SODIUM 100 MG CAPSULE PO SCH (08:41)
[2025-06-11] MEDS: OMEPRAZOLE 20MG CAP PO SCH (11:41)
[2025-06-11 12:00] VITALS: BP 180/95; TEMP 97.5; O2SAT 92
[2025-06-11 13:19] VITALS: BP 176/96
[2025-06-11 20:00] VITALS: BP 136/71; TEMP 97.2; O2SAT 94
[2025-06-12 04:00] VITALS: BP 143/71; TEMP 97.9; O2SAT 95
[2025-06-12 10:50] LABS: APPEARANCE, URINE HAZY (CLEAR); BACTERIA, URINE AUTO NEGATIVE (NEGATIVE); BILIRUBIN, URINE AUTO NEGATIVE (NEGATIVE); BLOOD, URINE BLOOD NEGATIVE (NEGATIVE); GLUCOSE, URINE (UA) AUTO NEGATIVE (NEGATIVE); KETONE, URINE AUTO TRACE mg/dL (NEGATIVE); LEUKOCYTE ESTERASE, URINE AUTO 2+ (NEGATIVE); MUCUS, URINE SMALL (NEGATIVE); NITRITE, URINE AUTO POSITIVE (NEGATIVE); PROTEIN, URINE AUTO NEGATIVE (NEGATIVE); RBC, URINE AUTO 2 /HPF (0-3); SPECIFIC GRAVITY URINE AUTO 1.016 (1.002-1.035); SQUAMOUS EPITHELIAL CELL UR AU 0 /HPF (0-6); UROBILINOGEN, URINE AUTO 0.2 mg/dL (0.0-2.0); WBC, URINE AUTO TNTC /HPF (0-3)
[2025-06-12 11:48] VITALS: BP 166/88; TEMP 97.7; O2SAT 94
[2025-06-12 12:12] VITALS: BP 142/78
[2025-06-12] MEDS: FOSFOMYCIN TROMETHAMINE 3 GM POWDER PACKET PO ONE (13:43)
[2025-06-12 20:25] VITALS: BP 159/99; TEMP 97.7; O2SAT 94
[2025-06-12 21:55] VITALS: BP 136/59; TEMP 97.7; O2SAT 94
[2025-06-13 04:13] VITALS: BP 157/77; TEMP 97.3; O2SAT 94
[2025-06-13 07:43] LABS: BASO # 0.1 10^3/uL (0.0-0.2); BASO % 0.2 % (0.0-1.0); EOS # 0.1 10^3/uL (0.0-0.5); EOS % 0.3 % (0.0-3.0); LYMPH # 21.6 10^3/uL (1.5-5.0); LYMPH % 84.0 % (24.0-44.0); MONO # 0.8 10^3/uL (0.0-0.8); MONO % 3.1 % (2.0-8.0); NEUTROPHILS # 3.1 10^3/uL (1.5-8.5); NEUTROPHILS % 12.3 % (36.0-66.0); PLATELET COUNT, AUTOMATED 174 10^3/uL (150-450)
[2025-06-13 12:10] VITALS: BP 168/86; TEMP 97.9; O2SAT 95
[2025-06-13] MEDS: ACETAMINOPHEN 325 MG TAB PO PRN (14:35)
[2025-06-13 19:38] VITALS: BP 148/70; TEMP 97.9; O2SAT 94
[2025-06-14 04:10] VITALS: BP 131/63; TEMP 97.3; O2SAT 93
[2025-06-14 12:21] VITALS: BP 158/75; TEMP 97.7; O2SAT 95
[2025-06-14 19:32] VITALS: BP 159/75; TEMP 97.9; O2SAT 95
[2025-06-15 03:34] VITALS: BP 150/60; TEMP 97.5; O2SAT 95
[2025-06-15] MEDS ORDERED: POLYETHYLENE GLYCOL 238 GM BOTTLE PO ONE (07:45)
[2025-06-15] MEDS: RASAGILINE 1 MG PO SCH (08:12)
[2025-06-15] MEDS: MIRALAX *UNIT DOSE* 17 GM PACKET PO ONE (08:12)
[2025-06-15 12:00] VITALS: BP 148/89; TEMP 97.9; O2SAT 92
[2025-06-15 20:12] VITALS: BP 156/90; TEMP 97.7; O2SAT 93
[2025-06-15] MEDS ORDERED: SENNA 8.6 MG TAB PO PRN (22:35)
[2025-06-16 04:54] VITALS: BP 125/65; TEMP 97.7; O2SAT 94
[2025-06-16 11:07] LABS: PLATELET COUNT, AUTOMATED 233 10^3/uL (150-450)
[2025-06-16 11:35] VITALS: BP 146/81; TEMP 97.9; O2SAT 92
[2025-06-16 11:38] LABS: ALT/SGPT 9 U/L (7.0-40); AST/SGOT 47 U/L (<34); CALCIUM LEVEL 10.0 MG/DL (8.3-10.6); CARBON DIOXIDE LEVEL 28 MMOL/L (20-31); CHLORIDE LEVEL 105 MMOL/L (98-107); CREATININE FOR GFR 0.53 MG/DL (0.55-1.30); GLOMERULAR FILTRATION RATE > 90.0 (>39); POTASSIUM SERUM 4.7 MMOL/L (3.5-5.1); SODIUM LEVEL 144 MMOL/L (136-145)
[2025-06-16] MEDS ORDERED: SODI10LI7 TOP (15:02)
[2025-06-16] MEDS: SODIUM SULFACETAMIDE TOP SCH (17:11)
[2025-06-16 20:54] VITALS: BP 138/75; TEMP 97.7; O2SAT 91
[2025-06-16] MEDS: METRONIDAZOLE 0.75% TOP PRN (20:59)
[2025-06-16] MEDS ORDERED: metroNIDAZOLE 0.75% CREAM 45 GM TOP SCH (21:00)
[2025-06-17 05:08] VITALS: BP 142/69; TEMP 97.9; O2SAT 90
[2025-06-17 08:18] LABS: PLATELET COUNT, AUTOMATED 206 10^3/uL (150-450)
[2025-06-17 08:44] LABS: ALT/SGPT 29 U/L (7.0-40); AST/SGOT 39 U/L (<34); CALCIUM LEVEL 9.9 MG/DL (8.3-10.6); CARBON DIOXIDE LEVEL 29 MMOL/L (20-31); CHLORIDE LEVEL 106 MMOL/L (98-107); CREATININE FOR GFR 0.57 MG/DL (0.55-1.30); GLOMERULAR FILTRATION RATE > 90.0 (>39); POTASSIUM SERUM 4.3 MMOL/L (3.5-5.1); SODIUM LEVEL 144 MMOL/L (136-145)
[2025-06-18 04:08] VITALS: BP 126/66; TEMP 97.5; O2SAT 92
[2025-06-19 04:48] VITALS: BP 130/65; TEMP 97.9; O2SAT 92
[2025-06-20 04:19] VITALS: BP 147/78; TEMP 97.5; O2SAT 94
[2025-06-20] MEDS: MOM 30 ML SUSPENSION UDC PO PRN (18:51)
[2025-06-21 04:00] VITALS: BP 133/56; TEMP 97.5; O2SAT 95
[2025-06-21 08:19] VITALS: BP 146/78; TEMP 97.9; O2SAT 96
[2025-06-21 12:34] VITALS: BP 155/89; TEMP 97.7; O2SAT 96
[2025-06-21 20:56] VITALS: BP 122/66; TEMP 97.5; O2SAT 95
[2025-06-22 06:02] VITALS: BP 144/75; TEMP 97.5; O2SAT 92
== END 2025-06-22 11:51 | DRG 178 ==
LOC: M ED 10:51 → EDBD 10:51 → M ED INP 10:52 → M MSPAV 22:47 → OBSVTOIN 06-15 12:57
PROVIDERS: ADMIT Student in an Organized Health Care Education/Training Program; ATTEND Internal Medicine
DX: U07.1 COVID-19 (principal); C83.00 Small cell B-cell lymphoma, unspecified site; N39.0 Urinary tract infection, site not specified; Z66 Do not resuscitate; E03.9 Hypothyroidism, unspecified; G20.A1 Parkinson's disease without dyskinesia, without mention of fluctuations; E78.5 Hyperlipidemia, unspecified; M85.80 Other specified disorders of bone density and structure, unspecified site; K21.9 Gastro-esophageal reflux disease without esophagitis; R53.1 Weakness; E83.42 Hypomagnesemia; R29.6 Repeated falls; R26.89 Other abnormalities of gait and mobility; S52.501D Unspecified fracture of the lower end of right radius, subsequent encounter for closed fracture with routine healing; Z85.3 Personal history of malignant neoplasm of breast; Z90.12 Acquired absence of left breast and nipple; Z98.41 Cataract extraction status, right eye; Z98.42 Cataract extraction status, left eye; Z90.79 Acquired absence of other genital organ(s); Z90.49 Acquired absence of other specified parts of digestive tract; Z79.890 Hormone replacement therapy; Z79.899 Other long term (current) drug therapy; Z88.8 Allergy status to other drugs, medicaments and biological substances; Z91.0110 Allergy to milk products, unspecified; S81.012A Laceration without foreign body, left knee, initial encounter; W06.XXXA Fall from bed, initial encounter; Y92.230 Patient room in hospital as the place of occurrence of the external cause

== ENCOUNTER → 2025-06-24 | Outpatient (REF) ==
[~2025-06-24] MED LIST changes: +CARB25TA9 PO; +KP F1200 PO; +METR0.7526 TOP; +SODI10LI7 TOP; +VITA400C53 PO
[2025-06-24 11:55] LABS: PLATELET COUNT, AUTOMATED 214 10^3/uL (150-450)
[2025-06-24 12:35] LABS: CALCIUM LEVEL 9.5 MG/DL (8.3-10.6); CARBON DIOXIDE LEVEL 26 MMOL/L (20-31); CHLORIDE LEVEL 105 MMOL/L (98-107); CHOLESTEROL LEVEL 141 MG/DL (<200); CHOLESTEROL RISK RATIO 3.80 (<5); CREATININE FOR GFR 0.51 MG/DL (0.55-1.30); GLOMERULAR FILTRATION RATE > 90.0 (>39); LDL CHOLESTEROL 80.1 MG/DL (<100); MAGNESIUM LEVEL 2.3 MG/DL (1.8-2.4); NON-HDL-C 103.9 MG/DL; POTASSIUM SERUM 4.3 MMOL/L (3.5-5.1); SODIUM LEVEL 143 MMOL/L (136-145); TRIGLYCERIDES LEVEL 119 MG/DL (<150)
== END ==
PROVIDERS: ATTEND Internal Medicine
DX: G20.A1 Parkinson's disease without dyskinesia, without mention of fluctuations (principal)

== ENCOUNTER → 2025-06-26 | Outpatient (REF) ==
[2025-06-26 10:48] LABS: PLATELET COUNT, AUTOMATED 207 10^3/uL (150-450)
[2025-06-26 11:15] LABS: CALCIUM LEVEL 9.8 MG/DL (8.3-10.6); CARBON DIOXIDE LEVEL 30 MMOL/L (20-31); CHLORIDE LEVEL 106 MMOL/L (98-107); CREATININE FOR GFR 0.54 MG/DL (0.55-1.30); GLOMERULAR FILTRATION RATE > 90.0 (>39); POTASSIUM SERUM 4.2 MMOL/L (3.5-5.1); SODIUM LEVEL 145 MMOL/L (136-145)
== END ==
PROVIDERS: ATTEND Physician Assistant
DX: D72.829 Elevated white blood cell count, unspecified (principal)

== ENCOUNTER → 2025-06-29 | Outpatient (REF) | payer MEDICARE, OTHER | LOC: M SOG 07:30 → EDSTATUS 08:33 | PROVIDERS: ATTEND Orthopaedic Surgery | DX: M25.531 Pain in right wrist (principal) ==

== ENCOUNTER → 2025-07-01 | Outpatient (REF) ==
[2025-07-01 11:29] LABS: PLATELET COUNT, AUTOMATED 181 10^3/uL (150-450)
[2025-07-01 11:52] LABS: CALCIUM LEVEL 10.1 MG/DL (8.3-10.6); CARBON DIOXIDE LEVEL 24 MMOL/L (20-31); CHLORIDE LEVEL 107 MMOL/L (98-107); CREATININE FOR GFR 0.49 MG/DL (0.55-1.30); GLOMERULAR FILTRATION RATE > 90.0 (>39); POTASSIUM SERUM 4.6 MMOL/L (3.5-5.1); SODIUM LEVEL 145 MMOL/L (136-145)
== END ==
PROVIDERS: ATTEND Internal Medicine
DX: G20.A1 Parkinson's disease without dyskinesia, without mention of fluctuations (principal)

== ENCOUNTER → 2025-07-08 | Outpatient (REF) ==
[2025-07-08 12:44] LABS: PLATELET COUNT, AUTOMATED 172 10^3/uL (150-450)
[2025-07-08 13:07] LABS: CALCIUM LEVEL 10.0 MG/DL (8.3-10.6); CARBON DIOXIDE LEVEL 27 MMOL/L (20-31); CHLORIDE LEVEL 106 MMOL/L (98-107); CREATININE FOR GFR 0.49 MG/DL (0.55-1.30); GLOMERULAR FILTRATION RATE > 90.0 (>39); POTASSIUM SERUM 4.0 MMOL/L (3.5-5.1); SODIUM LEVEL 144 MMOL/L (136-145)
== END ==
PROVIDERS: ATTEND Internal Medicine
DX: G20.A1 Parkinson's disease without dyskinesia, without mention of fluctuations (principal)

== ENCOUNTER → 2025-07-15 | Outpatient (REF) | payer MEDICARE, OTHER | LOC: M SOG 07:39 → EDSTATUS 11:00 | PROVIDERS: ATTEND Physician Assistant | DX: S62.91XA Unspecified fracture of right hand, initial encounter for closed fracture (principal); Y93.9 Activity, unspecified; Y92.9 Unspecified place or not applicable ==

== ENCOUNTER → 2025-08-05 | Outpatient (REF) ==
[2025-08-05 14:17] LABS: PLATELET COUNT, AUTOMATED 219 10^3/uL (150-450)
[2025-08-05 14:51] LABS: CALCIUM LEVEL 10.3 MG/DL (8.3-10.6); CARBON DIOXIDE LEVEL 28 MMOL/L (20-31); CHLORIDE LEVEL 104 MMOL/L (98-107); CREATININE FOR GFR 0.45 MG/DL (0.55-1.30); GLOMERULAR FILTRATION RATE > 90.0 (>39); POTASSIUM SERUM 4.2 MMOL/L (3.5-5.1); SODIUM LEVEL 143 MMOL/L (136-145)
== END ==
PROVIDERS: ATTEND Internal Medicine
DX: G20.A1 Parkinson's disease without dyskinesia, without mention of fluctuations (principal)

== ENCOUNTER → 2025-08-21 | Outpatient (CLI) | payer MEDICARE, OTHER | LOC: M SOG 07:47 | PROVIDERS: ATTEND Physician Assistant | DX: S52.501D Unspecified fracture of the lower end of right radius, subsequent encounter for closed fracture with routine healing (principal) ==